=== PATIENT | female | born 1955 | race Caucasian/White ===

== ENCOUNTER → 2020-04-26 | Outpatient (CLI) | payer BC ==
[~2020-04-26] MED LIST: DENOSUMAB 60 MG/1 ML (PROLIA) SQ SCH
[2020-04-26 13:50] VITALS: BP 107/60
== END ==
LOC: SDC 12:47
PROVIDERS: ATTEND Family Medicine
DX: M81.0 Age-related osteoporosis without current pathological fracture (principal)
CPT/HCPCS: 96372

== ENCOUNTER 2020-10-28 12:43 | Outpatient (CLI) | payer BC ==
[2020-10-28 12:54] VITALS: BP 117/51
[2020-10-28] MEDS ORDERED: DENOSUMAB 60 MG/1 ML (PROLIA) SQ ONE (13:00)
== END 2020-10-28 13:05 | disposition home or self-care (01) ==
LOC: SDC 12:43
PROVIDERS: ATTEND Family Medicine
DX: M81.0 Age-related osteoporosis without current pathological fracture (principal)
CPT/HCPCS: 96372

== ENCOUNTER → 2021-04-18 | Outpatient (CLI) | payer BC ==
[2021-04-18 12:45] VITALS: BP 103/49
== END ==
LOC: SDC 12:17
PROVIDERS: ATTEND Nurse Practitioner Family
DX: M81.0 Age-related osteoporosis without current pathological fracture (principal)
CPT/HCPCS: 96372

== ENCOUNTER → 2021-10-30 | Day surgery (SDC) | payer BC ==
[~2021-10-30] VITALS: Ht 170.2 cm; Wt 72.7 kg
[~2021-10-30] MED LIST changes: +DENOSUMAB 60 MG/1 ML (PROLIA) SQ ONE; -DENOSUMAB 60 MG/1 ML (PROLIA) SQ SCH
[2021-10-30 13:30] VITALS: BP 99/70
== END | disposition home or self-care (01) ==
LOC: SDC 12:36
PROVIDERS: ATTEND Nurse Practitioner Family
DX: M81.0 Age-related osteoporosis without current pathological fracture (principal)
CPT/HCPCS: 96372

== ENCOUNTER 2022-05-05 08:52 | Outpatient (CLI) | payer MEDICARE, OTHER ==
[~2022-05-05] VITALS: Ht 167.7 cm; Wt 68.2 kg
[2022-05-05] MEDS ORDERED: VITAMIN B12 PO (09:26)
[2022-05-05] MEDS ORDERED: CHOL-34 PO (09:26)
[2022-05-05] MEDS ORDERED: LEVO25CA4 PO (09:26)
[2022-05-05] MEDS ORDERED: LATA7.5D OU (09:26)
[2022-05-05] MEDS ORDERED: CALC600T91 PO (09:26)
[2022-05-05] MEDS ORDERED: DENOSUMAB 60 MG/1 ML (PROLIA) SQ SCH (09:30)
[2022-05-05 09:40] VITALS: BP 112/63
== END 2022-05-05 09:40 | disposition home or self-care (01) ==
LOC: SDC 08:52
PROVIDERS: ATTEND Family Medicine
DX: M81.0 Age-related osteoporosis without current pathological fracture (principal)
CPT/HCPCS: 96372

== ENCOUNTER → 2022-11-13 | Outpatient (CLI) | payer MEDICARE, OTHER ==
[~2022-11-13] MED LIST changes: +CALC600T91 PO; +CHOL-34 PO; -DENOSUMAB 60 MG/1 ML (PROLIA) SQ ONE; +DENOSUMAB 60 MG/1 ML (PROLIA) SQ SCH; +LATA7.5D OU; +LEVO25CA4 PO; +VITAMIN B12 PO
[2022-11-13 11:10] VITALS: BP 111/73
== END ==
LOC: SDC 11:04
PROVIDERS: ATTEND Family Medicine
DX: M81.0 Age-related osteoporosis without current pathological fracture (principal)
CPT/HCPCS: 96372